=== PATIENT | female | born 1995 | race Caucasian/White ===

== ENCOUNTER 2017-09-19 16:57 | Emergency (ER) | payer SELFPAY ==
[~2017-09-19] VITALS: Ht 154.9 cm; Wt 62.3 kg
[2017-09-19 17:00] VITALS: BP 119/72; TEMP 98.4
[2017-09-19] MEDS ORDERED: PREDNISONE20 MG PO (18:20)
[2017-09-19] MEDS ORDERED: TRIAM OI 15 0.025 TOP (18:20)
[2017-09-19 18:30] VITALS: PULSE 92
== END 2017-09-19 18:29 | disposition home or self-care (01) ==
LOC: COL.ER 16:57
DX: L23.9 Allergic contact dermatitis, unspecified cause (principal)